=== PATIENT | male | born 2000 | race Caucasian/White ===

== ENCOUNTER 2021-04-09 15:34 | Observation (INO) | payer BC, OTHER ==
[~2021-04-09 15:34] MED LIST: Iopamidol-370 76% 500 ML 1 ML ONE
[2021-04-09] MEDS ORDERED: Acetaminophen/Codeine 30-300mg Tablet ONE (17:08)
[2021-04-09 17:23] LABS: Hemoglobin 14.5 g/dL (14.0-18.0); Mean Corpuscular HGB CONC 32.9 g/dL (32.0-36.0); Mean Corpuscular Volume 88.2 fL (78.0-98.0); Mean Platelet Volume 6.9 fL (7.4-10.4); Platelet Count 309 thou/uL (130-400); RBC Distribution Width 11.6 % (11.5-14.5); Red Blood Cell (RBC) Count 4.98 mill/uL (4.70-6.10); White Blood Cell (WBC) Count 22.1 thou/uL (4.8-10.8)
[2021-04-09 17:42] LABS: ALT (SGPT) 81 U/L (8-55); AST (SGOT) 64 U/L (5-34); Albumin 4.4 g/dL (3.5-5.0); Alcohol Less than 10 mg/dL (Less than 10); Alkaline Phosphatase 69 U/L (40-110); Anion Gap 12 mmol/L (10-20); BUN (Urea Nitrogen) 21 mg/dL (8.9-20.6); Calc. Creatinine Clearance 0 mL/min (70-130); Calcium 10.1 mg/dL (7.8-10.44); Carbon Dioxide 30 mmol/L (22-29); Chloride 97 mmol/L (98-107); Globulin 2.9 g/dL (2.4-3.5); Glucose 87 mg/dL (70-105); Lactic Acid 1.1 mmol/L (0.5-2.2); Potassium 4.4 mmol/L (3.5-5.1); Protein, Total 7.3 g/dL (6.0-8.3); Sodium 135 mmol/L (136-145)
[2021-04-09 17:52] LABS: Band 25 % (5-11); Lymphocytes 3 % (21-51); MDiff Complete? YES; Monocytes 5 % (0-10); Neutrophil 64 % (42-75); Platelet Morphology Comment Appears Adequate; RBC Morphology Normal; Reactive Lymphocytes 3 % (0-10)
[2021-04-09] MEDS ORDERED: Dextrose 50% Abboject 50 ML SYRINGE SLOW IVP PRN (18:21)
[2021-04-09] MEDS ORDERED: Dextrose 5% in Water 1,000 ML IV PRN (18:21)
[2021-04-09] MEDS ORDERED: Ondansetron PF 4 MG/2 ML Vial IVP PRN (18:21)
[2021-04-09] MEDS ORDERED: hydrALAZINE 20 MG/ML VIAL SLOW IVP PRN (18:21)
[2021-04-09] MEDS ORDERED: traMADol HCl 50 MG TAB PO PRN (18:23)
[2021-04-09] MEDS: Famotidine 20 MG TAB PO SCH (21:52)
[2021-04-09] MEDS: Gabapentin 300 MG CAP PO SCH (21:52)
[2021-04-09] MEDS: Cyclobenzaprine 10 MG TAB PO PRN (21:53)
[2021-04-09 21:56] VITALS: BMI 18.1
[2021-04-09] MEDS: Senokot S 8.6-50 MG TAB PO SCH (23:13)
[2021-04-09] MEDS: Acetaminophen 500 MG TAB PO SCH (23:20)
[2021-04-09] MEDS: Sodium Chloride 0.9% 1,000 ML IV SCH (23:20)
[2021-04-10 00:05] LABS: Amphetamine Not Detected (NotDetected); Barbiturates Screen Not Detected (NotDetected); Benzodiazepine Screen Not Detected (NotDetected); Cocaine Metabolite Screen Not Detected (NotDetected); Methadone Not Detected (NotDetected); Methamphetamine Not Detected (NotDetected); Opiate Screen Detected (NotDetected); Oxycodone Screen Not Detected (NotDetected); Phencyclidine (PCP) Not Detected (NotDetected); THC/Cannabinoid Screen Detected (NotDetected); Tricyclic Screen Not Detected (NotDetected)
[2021-04-10] MEDS: Sodium Chloride 0.9% 1,000 ML IV SCH (04:05)
[2021-04-10] MEDS: Acetaminophen 500 MG TAB PO SCH ×3 (05:38→19:00)
[2021-04-10 05:56] LABS: #Eosinphils 0.1 thou/uL (0.0-0.7); #Lymphocytes 1.5 thou/uL (1.20-3.40); #Monocytes 1.6 thou/uL (0.11-0.59); #Neutrophils 16.9 thou/uL (1.40-6.50); %Basophils 0.2 % (0.0-1.0); %Eosinophils 0.4 % (0.0-10.0); %Lymphocytes 7.4 % (21.0-51.0); %Monocytes 7.9 % (0.0-10.0); %Neutrophils 84.1 % (42.0-75.0); Hemoglobin 12.9 g/dL (14.0-18.0); Mean Corpuscular HGB CONC 33.4 g/dL (32.0-36.0); Mean Corpuscular Hemoglobin 29.7 pg (27.0-31.0); Mean Corpuscular Volume 88.8 fL (78.0-98.0); Mean Platelet Volume 7.1 fL (7.4-10.4); Platelet Count 280 thou/uL (130-400); RBC Distribution Width 11.5 % (11.5-14.5); Red Blood Cell (RBC) Count 4.34 mill/uL (4.70-6.10); White Blood Cell (WBC) Count 20.2 thou/uL (4.8-10.8)
[2021-04-10 06:19] LABS: Anion Gap 13 mmol/L (10-20); BUN (Urea Nitrogen) 17 mg/dL (8.9-20.6); Calc. Creatinine Clearance 117 mL/min (70-130); Calcium 9.3 mg/dL (7.8-10.44); Carbon Dioxide 27 mmol/L (22-29); Chloride 100 mmol/L (98-107); Glucose 94 mg/dL (70-105); Phosphorus 3.1 mg/dL (2.3-4.7); Potassium 4.1 mmol/L (3.5-5.1); Sodium 136 mmol/L (136-145)
[2021-04-10] MEDS: Gabapentin 300 MG CAP PO SCH ×3 (09:03→21:18)
[2021-04-10] MEDS: Cyclobenzaprine 10 MG TAB PO PRN (09:05)
[2021-04-10] MEDS: Senokot S 8.6-50 MG TAB PO SCH ×2 (09:05→21:18)
[2021-04-10] MEDS: Polyethylene Glycol 3350 17 GM Packet PO SCH (09:05)
[2021-04-10] MEDS: Famotidine 20 MG TAB PO SCH ×2 (09:05→21:18)
[2021-04-10] MEDS: traMADol HCl 50 MG TAB PO PRN ×2 (09:06→21:18)
[2021-04-10 17:23] LABS: SARS-CoV-2 PCR by NAA Not Detected (NotDetected)
[2021-04-11] MEDS: Acetaminophen 500 MG TAB PO SCH ×3 (00:10→13:13)
[2021-04-11 06:57] LABS: ALT (SGPT) 75 U/L (8-55); AST (SGOT) 86 U/L (5-34); Albumin 3.7 g/dL (3.5-5.0); Alkaline Phosphatase 77 U/L (40-110); Anion Gap 13 mmol/L (10-20); BUN (Urea Nitrogen) 17 mg/dL (8.9-20.6); Calc. Creatinine Clearance 120 mL/min (70-130); Calcium 9.6 mg/dL (7.8-10.44); Carbon Dioxide 28 mmol/L (22-29); Chloride 99 mmol/L (98-107); Globulin 2.5 g/dL (2.4-3.5); Glucose 91 mg/dL (70-105); Magnesium 1.7 mg/dL (1.6-2.6); Phosphorus 3.9 mg/dL (2.3-4.7); Potassium 4.2 mmol/L (3.5-5.1); Protein, Total 6.2 g/dL (6.0-8.3); Sodium 136 mmol/L (136-145)
[2021-04-11 07:25] LABS: #Eosinphils 0.4 thou/uL (0.0-0.7); #Lymphocytes 2.4 thou/uL (1.20-3.40); #Monocytes 1.1 thou/uL (0.11-0.59); #Neutrophils 9.5 thou/uL (1.40-6.50); %Basophils 0.2 % (0.0-1.0); %Eosinophils 2.9 % (0.0-10.0); %Lymphocytes 17.9 % (21.0-51.0); %Monocytes 8.1 % (0.0-10.0); Hemoglobin 12.8 g/dL (14.0-18.0); Mean Corpuscular HGB CONC 33.7 g/dL (32.0-36.0); Mean Corpuscular Hemoglobin 30.1 pg (27.0-31.0); Mean Corpuscular Volume 89.3 fL (78.0-98.0); Mean Platelet Volume 7.5 fL (7.4-10.4); Platelet Count 247 thou/uL (130-400); RBC Distribution Width 11.6 % (11.5-14.5); Red Blood Cell (RBC) Count 4.26 mill/uL (4.70-6.10); White Blood Cell (WBC) Count 13.3 thou/uL (4.8-10.8)
[2021-04-11 08:28] VITALS: BP 122/79; TEMP 97.9
[2021-04-11] MEDS ORDERED: Ibuprofen 600 MG TAB PO PRN (08:53)
[2021-04-11] MEDS: Polyethylene Glycol 3350 17 GM Packet PO SCH ×2 (09:23→09:26)
[2021-04-11] MEDS: Gabapentin 300 MG CAP PO SCH (09:23)
[2021-04-11] MEDS: Senokot S 8.6-50 MG TAB PO SCH (09:24)
== END 2021-04-11 13:35 | disposition home or self-care (01) ==
LOC: ERS 15:34 → SURG A 18:21
PROVIDERS: ADMIT Surgery; ATTEND Surgery
DX: S22.42XA Multiple fractures of ribs, left side, initial encounter for closed fracture (principal); S27.2XXA Traumatic hemopneumothorax, initial encounter; S27.321A Contusion of lung, unilateral, initial encounter; S37.052A Moderate laceration of left kidney, initial encounter; F10.129 Alcohol abuse with intoxication, unspecified; Z87.891 Personal history of nicotine dependence; Z20.822 Contact with and (suspected) exposure to COVID-19; V27.4XXA Motorcycle driver injured in collision with fixed or stationary object in traffic accident, initial encounter; Y93.89 Activity, other specified; Y90.0 Blood alcohol level of less than 20 mg/100 ml
CPT/HCPCS: 36415; 70450; 71045; 71260; 72125; 74177; 80048; 80053; 80306; 80307; 83605; 83735; 84100; 85025; G0378; J7050; Q9967; U0003; U0005

== ENCOUNTER 2021-04-19 15:57 | Outpatient (CLI) | payer BC | END 2021-04-19 15:58 | disposition home or self-care (01) | LOC: BICRAD 15:57 | PROVIDERS: ATTEND Surgery | DX: S22.42XD Multiple fractures of ribs, left side, subsequent encounter for fracture with routine healing (principal); J93.9 Pneumothorax, unspecified | CPT/HCPCS: 71046 ==